=== PATIENT | male | born 1995 | race Caucasian/White ===

== ENCOUNTER 2017-02-02 11:12 | Inpatient (IN) | payer MEDICAID ==
[~2017-02-02] VITALS: Ht 165.1 cm; Wt 83.0 kg
[2017-02-02 14:34] LABS: BASOPHIL % 0.2 % (0-2); PLATELET COUNT 245 x10^3mcL (130-400); RED CELL DISTRIBUTION WIDTH 12.6 % (11.5-14.5)
[2017-02-02 14:45] LABS: CARBON DIOXIDE 29.1 mmol/L (21-32); CHLORIDE SERUM 98 mmol/L (98-107); CREATININE SERUM 0.9 mg/dL (0.7-1.3); GFR1 > 60 mL/min; GLUCOSE SERUM 108 mg/dL (74-106); POTASSIUM SERUM 3.7 mmol/L (3.5-5.1); SODIUM SERUM 135 mmol/L (136-145)
[2017-02-02 14:50] LABS: ALBUMIN 4.1 g/dL (3.4-5.0); ALKALINE PHOSPHATASE 100 U/L (46-116); ALT/SGPT 27 U/L (16-63); AST/SGOT 13 U/L (15-37); BILIRUBIN TOTAL 1.7 mg/dL (0.20-1.00); LIPASE 67 IU/L (73-393)
[2017-02-02 14:53] LABS: TOTAL PROTEIN, SERUM 8.3 g/dL (6.4-8.2)
[2017-02-02 16:34] LABS: FREE T4 1.08 ng/dL (0.76-1.46); T4(THYROXINE) 5.1 ug/dL (4.7-13.3)
[2017-02-02 16:36] LABS: UA SPECIFIC GRAVITY >=1.030 (1.005-1.035); microscopic required? YES; urine erythrocyte NEGATIVE (NEGATIVE)
[2017-02-02 16:44] LABS: AMPHETAMINE QUAL UR NONE DETECTED (NEG <=1000)
[2017-02-02 16:47] LABS: CHOLESTEROL/HDL RATIO 2.8; MAGNESIUM 2.3 mg/dL (1.8-2.4); PHOSPHOROUS 3.2 mg/dL (2.5-4.9)
[2017-02-02 16:50] LABS: T3 TOTAL 0.79 ng/mL
[2017-02-02 17:50] VITALS: BP 127/72
[2017-02-02 21:55] VITALS: BP 129/77
[2017-02-03] VITALS (7 sets, daily range): BP systolic 103–133; BP diastolic 57–81
[2017-02-03 06:25] LABS: PLATELET COUNT 238 x10^3mcL (130-400); RED CELL DISTRIBUTION WIDTH 12.8 % (11.5-14.5)
[2017-02-03 06:31] LABS: ALBUMIN 3.4 g/dL (3.4-5.0); ALKALINE PHOSPHATASE 83 U/L (46-116); ALT/SGPT 35 U/L (16-63); AST/SGOT 33 U/L (15-37); BASOPHIL % 0 % (0-2); BILIRUBIN TOTAL 1.03 mg/dL (0.20-1.00); CALCIUM 8.7 mg/dL (8.5-10.1); CARBON DIOXIDE 25.9 mmol/L (21-32); CHLORIDE SERUM 100 mmol/L (98-107); CREATININE SERUM 0.8 mg/dL (0.7-1.3); GFR1 > 60 mL/min; GLUCOSE SERUM 136 mg/dL (74-106); POTASSIUM SERUM 4.3 mmol/L (3.5-5.1); SODIUM SERUM 133 mmol/L (136-145); TOTAL PROTEIN, SERUM 7.3 g/dL (6.4-8.2)
[2017-02-04 05:12] VITALS: BP 114/69
[2017-02-04 06:45] LABS: CALCIUM 8.5 mg/dL (8.5-10.1); CARBON DIOXIDE 26.2 mmol/L (21-32); CHLORIDE SERUM 100 mmol/L (98-107); CREATININE SERUM 0.8 mg/dL (0.7-1.3); GFR1 > 60 mL/min; GLUCOSE SERUM 101 mg/dL (74-106); MAGNESIUM 1.9 mg/dL (1.8-2.4); PHOSPHOROUS 3.4 mg/dL (2.5-4.9); POTASSIUM SERUM 3.7 mmol/L (3.5-5.1); SODIUM SERUM 134 mmol/L (136-145)
[2017-02-04 06:57] LABS: BASOPHIL % 0.1 % (0-2); PLATELET COUNT 207 x10^3mcL (130-400); RED CELL DISTRIBUTION WIDTH 12.3 % (11.5-14.5)
[2017-02-04] MEDS ORDERED: APAP/HYDROCODON1 T13 PO (08:09)
[2017-02-04] MEDS ORDERED: COL250 PO (08:10)
[2017-02-04] MEDS ORDERED: LAC PO (08:27)
[2017-02-04] MEDS ORDERED: KEFLEX500 M1 PO (08:27)
[2017-02-04 10:25] VITALS: BP 128/70
[2017-02-04 12:32] VITALS: BP 128/70
[2017-02-04 12:46] VITALS: BP 121/80
== END 2017-02-04 13:20 | disposition home or self-care (01) | DRG 225 ==
LOC: ED 11:12 → MU 16:03 → DU 16:03 → MU 02-03 14:52
PROVIDERS: Emergency Medicine; Surgery; ADMIT Family Medicine
PROC: 0DTJ4ZZ Resection of Appendix, Percutaneous Endoscopic Approach (ICD-10-PCS; principal; 2017-02-02 21:00)
DX: K35.80 Unspecified acute appendicitis (principal); N17.0 Acute kidney failure with tubular necrosis; E87.1 Hypo-osmolality and hyponatremia; F70 Mild intellectual disabilities; K76.0 Fatty (change of) liver, not elsewhere classified; E66.8 Other obesity; Z68.30 Body mass index [BMI] 30.0-30.9, adult
CPT/HCPCS: 80307; 84439; G0480; J0696; J2250; J2270; J2543; J3010; J3490; J7030; Q0092